=== PATIENT | male | born 2000 | race Caucasian/White ===

== ENCOUNTER 2018-10-30 19:57 | Emergency (ER) | payer OTHER ==
--- NOTE | 2018-10-30 20:34 | EDPHY ---
General Time Seen by Provider: 10/30/18 20:03 Narrative: CLINICAL IMPRESSION: Right distal clavicle fracture with AC separation ASSESSMENT/PLAN: 18-year-old male presents to the emergency department after falling off his skateboard tonight injuring his right shoulder. Patient was unhelmeted, has no complaints of headache, dizziness, vertigo and clinically has no signs of scalp hematoma contusion or laceration. He has no midline neck pain, no upper extremity radiculopathy or weakness. He has superficial abrasions to the right arm, bilateral lower back and left knee. He is ambulatory without obvious leg discomfort. No abdominal or flank pain. No neuro deficits on exam. X-rays of the right shoulder show a distal clavicle fracture with grade 1 AC joint separation. He was placed in a sling for comfort, referred to Orthopedics, rice treatment reviewed, warning signs return to ED sooner discussed in discharge. DIFFERENTIAL DX: Differential includes but not limited to shoulder dislocation, proximal humerus fracture,AC separation, clavicle fracture, pneumothorax ED PROCEDURES: See lab and/or imaging results below Procedure: Splint placement. A sling splint was applied to right arm After application of the splint I returned and re-examined the patient. The splint was adequately immobilizing the joint and distal to the splint the patient's circulation and sensation was intact. ED COURSE: X-ray findings reviewed with the patient in person at bedside. CHIEF COMPLAINT: Right shoulder pain, fell off skateboard HPI: 18-year-old male presents to the emergency department after falling off his skateboard 10 min prior to arrival. Patient is with his friend who witnessed the accident. He reports he was [place] fast [place] when he hit a bump and lost control falling over the board. His friend states he landed primarily on the right shoulder, rolled to his back and then ended up on his back. He was unhelmeted but reports he did not hit his head, has no obvious contusion or cuts to the head and no reports of headache, dizziness or vertigo. His only complaint of pain is the right shoulder which she has difficulty elevating. No prior right shoulder injury or surgery. He has superficial abrasions to the right arm, left knee and back. Tetanus is up-to- date. He reports he was able to stand with help and walk without difficulty. He is not anticoagulated reports no other medical history. PAST MEDICAL HISTORY: None reported See triage summary and nurse notes for addition applicable history Pertinent Past Surgical History: None reported Family History: Noncontributory Social History: Student at [employer] REVIEW OF SYSTEMS: A full 10 point review of systems was negative except for those mentioned in HPI. PHYSICAL EXAM: General Appearance: Alert, oriented, appropriate, cooperative, NAD, well hydrated, non-toxic appearing, hypertensive, no hypoxia. HEENT: TMs are clear bilaterally no perforation or FB, no injection, no evidence of serous or mucopurulent otitis. No hemotympanum or Crawley sign. No palpable scalp hematoma, contusion, laceration or evidence of skull fracture. Oropharynx clear is no erythema or exudates, no tonsillar hypertrophy or asymmetry. Dentition without abnormality, no dental fracture or intraoral laceration. Eyes: PERRLA, no acute vision change, nystagmus, swelling, discharge, pain or photosensitivity. Conjunctiva pink, no pallor or injection Neck: Supple, nontender, no lymphadenopathy, no midline pain, FROM, no meningismus. Negative Spurling test Respiratory: There are no retractions, lungs are clear to auscultation. No rib pain to palpation or chest wall pain. Cardiac: Regular rate and rhythm, no murmurs or gallops. Gastrointestinal: Abdomen is soft, nontender, bowel sounds normal, no masses/ hernia, no rigidity, guarding or focal peritoneal findings. Skin: Multiple superficial abrasions to right shoulder, right elbow, right forearm, bilateral lower back, left knee. No suturable laceration Musculoskeletal: Limited range of motion of right shoulder due to pain. No obvious evidence of dislocation. Full range of motion of the elbow wrist and hand. Tactical Debriefer Officer strength 5/5 bilaterally. No clavicle pain. No midline neck or back pain. No flank pain. Ambulates without obvious discomfort. Full range of motion of both knees. MEDICAL DECISION MAKING: Patient was seen independently. Secondary supervising physician at time of evaluation was: Dr Chan . Diagnosis: Multiple superficial abrasions, right distal clavicle fracture with AC separation . New, requires workup Summary: See Assessment and Plan for summary of ED visit Independent visualization of images, tracing, or specimens: Yes. Patient Progress: Stable for discharge. - Diagnostics Imaging Results: Imaging Impressions Shoulder X-Ray 10/30/18 20:27 Impression: Oblique mildly displaced fracture of the distal clavicle with probable extension into the acromioclavicular joint with acromioclavicular separation. - History Smoking Status: Never smoked - Objective Vital Signs: Initial Vital Signs Temperature (C) 36.7 C 10/30/18 20:01 Heart Rate 79 10/30/18 20:01 Respiratory Rate 17 10/30/18 20:01 Blood Pressure 145/81 H 10/30/18 20:01 O2 Sat (%) 97 10/30/18 20:01 O2 Delivery Mode Room Air Allergies/Adverse Reactions: tetanus and diphtheria toxoids Allergy (Verified 10/30/18 20:00) Home Medications: Medication Instructions Recorded NK [No Known Home Meds] 10/30/18 Medications Given: Discontinued Medications Tetracaine/Epinephrine/Lidocaine (Let Gel Topical) 1 ea TP EDNOW ONE Stop: 10/30/18 20:36 Last Admin: 10/30/18 20:37 Dose: 1 ea Departure - Departure Disposition: Home, Routine, Self-Care Clinical Impression: Multiple abrasions Right clavicle fracture Qualifiers: Encounter type: initial encounter Clavicle location: lateral end Fracture type : closed Fracture alignment: displaced Qualified Code(s): S42.031A - Displaced fracture of lateral end of right clavicle, initial encounter for closed fracture Condition: Good Instructions: Clavicle Fracture (ED) Additional Instructions: DISCHARGE INSTRUCTIONS FROM YOUR DOCTOR Thank you for visiting our emergency department today. You were treated by a physician assistant softball coach today and your case was reviewed with our ED Attending physician. Please keep in mind that discharge from the emergency department does not mean that there is nothing wrong - it simply means that we have not identified an emergency condition that requires further evaluation or treatment in the hospital. You should always plan to follow up with primary care for re- evaluation of your condition in the next 2-3 days. If you have been referred to a specialist, please call as soon as possible (today or tomorrow) to schedule your follow up appointment at the appropriate time. YOU HAVE A FRACTURE OF THE LATERAL AND OF THE RIGHT CLAVICLE ASSOCIATED WITH AN ACROMIOCLAVICULAR JOINT SEPARATION. THIS NEEDS REFERRAL TO ORTHOPEDICS. A CONTACT PHONE NUMBER WAS PROVIDED, PLEASE CALL THEM AND GET A FOLLOW-UP APPOINTMENT. USE A SLING FOR COMFORT UNTIL YOU SEE ORTHO. WE DID NOT SEE ANY SIGNS OF HEAD TRAUMA TONIGHT AND DID NOT PERFORM A CT SCAN. MONITOR SYMPTOMS CLOSELY AT HOME. TRY TO AVOID SCREEN TIME MUCH POSSIBLE. RETURN TO THE EMERGENCY DEPARTMENT IMMEDIATELY FOR SEVERE HEADACHES, ALTERED MENTAL STATUS, SEIZURES, UNEXPLAINED VOMITING, SEVERE DIZZINESS OR VERTIGO, VISION CHANGES, OR ANY OTHER CONCERNS. PLEASE KEEP WOUNDS CLEAN WITH SOAP WATER AND ANTIBIOTIC OINTMENT. People present with illnesses and injuries in different ways, and it is always possible that we have missed something. You may always return for re-evaluation if symptoms worsen or if they are not improving or if you develop new/different symptoms. Again, thank you for choosing our emergency department. We hope that you feel better. Referrals: NONE *PRIMARY CARE P,. [Primary Care Provider] - As per Instructions Jak Murphy MD [Medical Doctor] - As per Instructions
[2018-10-30] MEDS ORDERED: LET GEL TOPICAL 1 EA SYR TP ONE (20:35)
[2018-10-30 21:47] VITALS: BP 130/90
== END 2018-10-30 21:45 | disposition home or self-care (01) ==
DX: S42.031A Displaced fracture of lateral end of right clavicle, initial encounter for closed fracture (principal); S40.211A Abrasion of right shoulder, initial encounter; S50.311A Abrasion of right elbow, initial encounter; S50.811A Abrasion of right forearm, initial encounter; S80.212A Abrasion, left knee, initial encounter; S30.810A Abrasion of lower back and pelvis, initial encounter; V00.131A Fall from skateboard, initial encounter; Y93.51 Activity, roller skating (inline) and skateboarding
CPT/HCPCS: A4565